=== PATIENT | male | born 1945 | race Caucasian/White ===

== ENCOUNTER 2017-07-09 21:28 | Observation (INO) | payer OTHER ==
[~2017-07-09] VITALS: Ht 177.8 cm; Wt 56.3 kg
[~2017-07-09 21:28] MED LIST: CELEXA40 MG PO; CITALOPRAM HBR40 MG PO; CRESTOR20 MG PO; ECOTRIN81 M1 PO; FENOFIBRATE160 MG PO; FISH OIL300 MG PO; KLONOPIN1 M2 PO; LOPRESSOR25 MG PO; METOPROLOL SUCC25 MG PO; PREVACID15 MG PO; RISPERDAL1 MG PO; SIMVASTATIN80 MG PO
[2017-07-09 22:34] LABS: HEMATOCRIT 40.2 % (38.0-50.0); MCH 30.2 PG (29.0-34.0); MCHC 33.6 G/DL (30.0-36.0); MCV 89.9 FL (86-99); PLATELET COUNT 194 K/uL (156-360); RBC DIS.WIDTH-CV 12.2 % (11.8-14.6); RBC DIS.WIDTH-SD 40.3 % (39-53); RED BLOOD COUNT 4.47 M/uL (4.00-5.50); WHITE BLOOD COUNT 6.8 K/uL (4.1-10.2)
[2017-07-09 22:45] LABS: CHLORIDE 107 mEq/L (99-109); POTASSIUM 4.5 mEq/L (3.7-5.4); SODIUM 139 mEq/L (136-147)
[2017-07-09 22:48] LABS: GLUCOSE 101 mg/dL (70-99)
[2017-07-09 22:49] LABS: ANION GAP 8 MEQ/L (2-14)
[2017-07-09 22:51] LABS: ALKALINE PHOSPHATASE 76 IU/L (3-129)
[2017-07-09 22:52] LABS: GFR ESTIMATE (CALCULATED) > 59 mL/min/
[2017-07-09 22:53] LABS: UREA NITROGEN (BUN) 15 mg/dL (9-23)
[2017-07-09 22:55] LABS: LIPASE 37 U/L (1.0-51.0)
[2017-07-09 22:56] LABS: TROP-I INTERPRETATION NEGATIVE; TROPONIN-I < 0.01 ng/mL (0.0-0.30)
[2017-07-09] MEDS ORDERED: LISINOPRIL2.5 MG PO (23:18)
[2017-07-10 04:13] VITALS: BP 140/74
[2017-07-10 05:09] LABS: TROP-I INTERPRETATION NEGATIVE; TROPONIN-I < 0.01 ng/mL (0.0-0.30)
[2017-07-10 05:21] LABS: HDL CHOLESTEROL 37 MG/DL (Desirable>=40); LDL CHOLESTEROL 34 mg/dL (Desirable<100); NON-HDL CHOLESTEROL 59 mg/dL (Desirable<160); TOTAL CHOLESTEROL 96 mg/dL (Desirable<200); TRIGLYCERIDES 126 MG/DL (Normal: <150)
[2017-07-10 08:15] VITALS: BP 120/62
[2017-07-10] MEDS ORDERED: PANTOPRAZOLE SO40 MG PO (10:47)
[2017-07-10 11:22] LABS: TROP-I INTERPRETATION NEGATIVE; TROPONIN-I < 0.01 ng/mL (0.0-0.30)
[2017-07-10 12:01] VITALS: BP 134/76
== END 2017-07-10 14:02 | disposition home or self-care (01) ==
LOC: EME 21:28 → EDOF 07-10 01:48 → 5WEST 07-10 01:48 → ENRESERV 07-10 01:49 → 5WEST 07-10 03:59
PROVIDERS: Emergency Medicine; Physician Assistant
DX: R07.89 Other chest pain (principal); F43.10 Post-traumatic stress disorder, unspecified; I10 Essential (primary) hypertension; I25.10 Atherosclerotic heart disease of native coronary artery without angina pectoris; I71.2 Thoracic aortic aneurysm, without rupture; I25.2 Old myocardial infarction; Z95.5 Presence of coronary angioplasty implant and graft; F10.11 Alcohol abuse, in remission; Z87.19 Personal history of other diseases of the digestive system; F17.210 Nicotine dependence, cigarettes, uncomplicated; Z82.49 Family history of ischemic heart disease and other diseases of the circulatory system; Z79.82 Long term (current) use of aspirin; J44.9 Chronic obstructive pulmonary disease, unspecified
CPT/HCPCS: 71020; 80053; 80061; 83690; 84484; 85027; 93005; 94640; 99281; 99285; G0378; J1650

== ENCOUNTER 2017-08-10 22:05 | Inpatient (IN) | payer OTHER ==
[~2017-08-10] VITALS: Ht 177.8 cm; Wt 62.6 kg
[~2017-08-10 22:05] MED LIST changes: +LISINOPRIL2.5 MG PO; +PANTOPRAZOLE SO40 MG PO
[2017-08-10 23:13] LABS: BASOPHIL (%) 0.4 % (0-1); EOSINOPHIL COUNT 0.1 K/uL (0-0.3); HEMATOCRIT 39.9 % (38.0-50.0); HEMOGLOBIN 13.3 G/DL (12.5-16.6); IMMATURE GRANULOCYTE (%) 0.4 % (0.0-0.7); LYMPHOCYTE (%) 13.1 % (15-42); LYMPHOCYTE COUNT 1.3 K/uL (1.0-2.8); MCH 29.8 PG (29.0-34.0); MCHC 33.3 G/DL (30.0-36.0); MCV 89.3 FL (86-99); MONOCYTE (%) 5.9 % (3-12); MONOCYTE COUNT 0.6 K/uL (0-0.8); NEUTROPHIL (%) 79.2 % (45-76); NEUTROPHIL COUNT 7.8 K/uL (1.8-6.4); PLATELET COUNT 209 K/uL (156-360); RBC DIS.WIDTH-CV 12.4 % (11.8-14.6); RBC DIS.WIDTH-SD 40.3 % (39-53); RED BLOOD COUNT 4.47 M/uL (4.00-5.50); WHITE BLOOD COUNT 9.8 K/uL (4.1-10.2)
[2017-08-10 23:25] LABS: ALBUMIN 4.4 g/dL (3.2-4.8); CHLORIDE 108 mEq/L (99-109); SODIUM 140 mEq/L (136-147)
[2017-08-10 23:26] LABS: MAGNESIUM 2.1 mg/dL (1.3-2.7)
[2017-08-10 23:28] LABS: GLUCOSE 111 mg/dL (70-99); TOTAL PROTEIN 7.5 g/dL (6.4-8.3)
[2017-08-10 23:29] LABS: TOTAL BILIRUBIN 1.3 mg/dL (0.0-1.0)
[2017-08-10 23:30] LABS: SERUM ETHYL ALCOHOL < 10 mg/dL
[2017-08-10 23:31] LABS: CREATININE 1.2 mg/dL (0.6-1.3); GFR ESTIMATE (CALCULATED) > 59 mL/min/ (58.99-99999)
[2017-08-10 23:32] LABS: ALKALINE PHOSPHATASE 82 IU/L (3-129)
[2017-08-10 23:33] LABS: AST (GOT) 25 IU/L (2-34); UREA NITROGEN (BUN) 15 mg/dL (9-23)
[2017-08-10 23:35] LABS: ACETAMINOPHEN (TYLENOL) < 10 mcg/mL (10-30); ALT (GPT) 16 IU/L (3-49); SALICYLATE < 5.0 MG/DL (15-30)
[2017-08-11 00:39] LABS: APPEARANCE CLEAR ((CLEAR)); BILIRUBIN NEGATIVE; BLOOD NEGATIVE; COLOR YELLOW ((YELLOW)); GLUCOSE (STRIP) NEGATIVE; KETONES NEGATIVE; LEUKOCYTES NEGATIVE; NITRITE NEGATIVE; PROTEIN (STRIP) NEGATIVE; SPECIFIC GRAVITY 1.012 (1.000-1.030); UCUL ADDED? NO; UROBILINOGEN 0.2 MG/DL (0.2-1.0)
[2017-08-11 00:53] LABS: AMPHETAMINE NEGATIVE (500 ng/mL); BARBITURATES NEGATIVE (200 ng/mL); BENZODIAZEPINES NEGATIVE (150 ng/mL); COCAINE NEGATIVE (150 ng/mL); METHADONE NEGATIVE (200 ng/mL); METHAMPHETAMINE NEGATIVE (500 ng/mL); OPIATES (MORPHINE) NEGATIVE (100 ng/mL); PHENCYCLIDINE NEGATIVE (25 ng/mL); THC CANNABINOIDS NEGATIVE (50 ng/mL); TRICYCLIC ANTIDEPRESSANTS NEGATIVE (300 ng/mL)
[2017-08-11 00:54] LABS: BUPRENORPHINE NEGATIVE (10 ng/mL); OXYCODONE NEGATIVE (100 ng/mL); PROPOXYPHENE NEGATIVE (300 ng/mL)
[2017-08-11 09:09] VITALS: BP 122/60
[2017-08-11 09:35] VITALS: BP 122/60
[2017-08-11 15:55] VITALS: BP 132/95
[2017-08-12 08:18] VITALS: BP 91/55
[2017-08-12 15:28] VITALS: BP 98/57
[2017-08-13 07:27] VITALS: BP 93/52
[2017-08-13 08:45] VITALS: BP 126/66
[2017-08-13 15:39] VITALS: BP 110/57
[2017-08-14 08:01] VITALS: BP 108/57
[2017-08-14 10:01] VITALS: BP 132/66
[2017-08-14 15:31] VITALS: BP 100/58
[2017-08-15 07:40] VITALS: BP 112/63
[2017-08-15 11:23] VITALS: BP 96/51
[2017-08-15 15:35] VITALS: BP 94/54
[2017-08-15 21:25] VITALS: BP 124/59
[2017-08-16 07:55] VITALS: BP 123/57
[2017-08-16 15:50] VITALS: BP 113/57
[2017-08-16 20:11] VITALS: BP 143/63
[2017-08-17 09:39] VITALS: BP 112/63
[2017-08-17 16:24] VITALS: BP 117/57
[2017-08-18 07:53] VITALS: BP 150/63
[2017-08-18 15:40] VITALS: BP 96/52
[2017-08-19 07:12] VITALS: BP 126/57
[2017-08-19 11:54] VITALS: BP 104/51
[2017-08-19 15:30] VITALS: BP 111/56
[2017-08-20 07:45] VITALS: BP 118/60
[2017-08-20 11:52] VITALS: BP 97/53
[2017-08-20] MEDS ORDERED: DONEPEZIL HCL5 MG PO (12:57)
[2017-08-20] MEDS ORDERED: FLUOXETINE HCL10 MG PO (12:57)
[2017-08-20] MEDS ORDERED: CLONAZEPAM0.5 MG PO (12:57)
[2017-08-20] MEDS ORDERED: POLYETHYLENE GL17 GM PO (12:57)
[2017-08-20] MEDS ORDERED: MIRTAZAPINE30 MG PO (12:57)
[2017-08-20] MEDS ORDERED: ASPIR-LOW81 MG PO (12:57)
[2017-08-20] MEDS ORDERED: ZOLPIDEM TARTRAT5 MG PO (12:57)
[2017-08-20 15:18] VITALS: BP 134/65
== END 2017-08-20 19:13 | DRG 885 ==
LOC: EME → EDBD 22:05 → EME 22:05 → EDOF 08-11 06:12 → 1WEST 08-11 06:12 → ENRESERV 08-11 07:23 → 1WEST 08-11 08:38
PROVIDERS: Emergency Medicine
DX: F33.2 Major depressive disorder, recurrent severe without psychotic features (principal); I10 Essential (primary) hypertension; I25.2 Old myocardial infarction; I25.10 Atherosclerotic heart disease of native coronary artery without angina pectoris; Z95.5 Presence of coronary angioplasty implant and graft; J43.9 Emphysema, unspecified; F17.200 Nicotine dependence, unspecified, uncomplicated; R45.851 Suicidal ideations; Z63.4 Disappearance and death of family member; R41.9 Unspecified symptoms and signs involving cognitive functions and awareness; F40.00 Agoraphobia, unspecified; F43.10 Post-traumatic stress disorder, unspecified; F41.1 Generalized anxiety disorder; Z81.0 Family history of intellectual disabilities
CPT/HCPCS: 80053; 81003; 83735; 85025; 90839; 97150 GO; 97165 GO; 99281; 99283; G0480